=== PATIENT | male | born 1960 | race Caucasian/White ===

== ENCOUNTER → 2020-01-18 | Outpatient (CLI) | payer OTHER ==
[~2020-01-18] MED LIST: ADULT LOW DOSE81 MG PO; DIOVAN320 MG PO; GLUCOSAMINE HC500 MG PO; MULTI-VITAMIN1 EAC5 PO; PRAVASTATIN SOD20 MG PO
== END ==
LOC: CAT 11:34
PROVIDERS: ATTEND Internal Medicine Cardiovascular Disease
DX: Z13.6 Encounter for screening for cardiovascular disorders (principal); I25.10 Atherosclerotic heart disease of native coronary artery without angina pectoris; E78.00 Pure hypercholesterolemia, unspecified

== ENCOUNTER → 2020-06-06 | Outpatient (CLI) | payer BC | LOC: SJCVCIMAG 08:31 | PROVIDERS: ATTEND Internal Medicine Cardiovascular Disease | DX: I49.3 Ventricular premature depolarization (principal); I48.91 Unspecified atrial fibrillation; R53.83 Other fatigue; R93.1 Abnormal findings on diagnostic imaging of heart and coronary circulation; I25.10 Atherosclerotic heart disease of native coronary artery without angina pectoris; R06.00 Dyspnea, unspecified; Z95.2 Presence of prosthetic heart valve ==

== ENCOUNTER → 2021-01-16 | Outpatient (CLI) | payer BC ==
[2021-01-16 10:35] LABS: HEMATOCRIT 44.5 % (42.0-52.0); HEMOGLOBIN 14.3 gm/dL (14.0-18.0); MCH 30.7 pg (26.0-34.0); MCHC 32.2 g/dL (28.0-37.0); MCV 95.4 fL (80.0-100.0); RBC 4.67 mil/uL (4.50-6.00); RDW 13.9 % (10.5-14.5); WBC 5.9 thou/uL (4.0-11.0)
[2021-01-16 10:57] LABS: ALBUMIN 3.9 g/dL (3.4-5.0); CREATININE 1.1 mg/dL (0.7-1.3); POTASSIUM 4.1 mmol/L (3.5-5.1); TOTAL BILIRUBIN 0.6 mg/dL (0.2-1.0); TOTAL PROTEIN 7.3 g/dL (6.4-8.2)
== END ==
LOC: CAT 09:01
PROVIDERS: ATTEND Internal Medicine Cardiovascular Disease
DX: I48.91 Unspecified atrial fibrillation (principal)

== ENCOUNTER 2021-01-21 09:28 | Observation (INO) | payer BC ==
[~2021-01-21] VITALS: Ht 170.2 cm; Wt 86.2 kg
[2021-01-21 10:39] VITALS: BP 138/81
[2021-01-21 10:41] LABS: ABSOLUTE NEUTROPHILS 3.5 thou/uL (1.4-8.2); BASOPHILS 1.1 % (0.0-2.0); EOSINOPHILS 3.1 % (0.0-3.0); HEMATOCRIT 43.5 % (42.0-52.0); HEMOGLOBIN 14.3 gm/dL (14.0-18.0); LYMPHOCYTES 24.8 % (24.0-44.0); MCH 31.3 pg (26.0-34.0); MCHC 32.9 g/dL (28.0-37.0); MONOCYTES 8.3 % (1.0-8.0); PLATELET COUNT 167 thou/uL (150-400); POLYS 62.7 % (36.0-66.0); RBC 4.58 mil/uL (4.50-6.00); RDW 13.9 % (10.5-14.5); WBC 5.6 thou/uL (4.0-11.0)
[2021-01-21 10:44] LABS: CREATININE 1.2 mg/dL (0.7-1.3); POTASSIUM 4.2 mmol/L (3.5-5.1)
[2021-01-21] MEDS ORDERED: FLECAINIDE ACET50 M2 PO (10:46)
[2021-01-21] MEDS ORDERED: TOPROL XL100 MG PO (10:47)
[2021-01-21] MEDS ORDERED: BENICAR40 MG PO (10:47)
[2021-01-21] MEDS ORDERED: ROSUVASTATIN CA20 MG PO (10:48)
[2021-01-21] MEDS ORDERED: XARELTO20 MG PO (10:48)
[2021-01-21 10:50] LABS: ALBUMIN 4.1 g/dL (3.4-5.0); TOTAL BILIRUBIN 0.7 mg/dL (0.2-1.0); TOTAL PROTEIN 7.3 g/dL (6.4-8.2)
[2021-01-21 10:51] LABS: APTT 26.2 Seconds (24.5-32.8); INR 1.02; PROTIME 11.1 Seconds (10.5-12.1)
--- NOTE | 2021-01-21 13:05 | TEE ---
[facility] [place] [address] TRANSESOPHAGEAL ECHOCARDIOGRAM Name: MERA ESPINAL Room #: REG Caitlyn Clemente#: [id number] Admission: 01/21/21 Attend Phys: Phoenix Sánchez MD Discharge: Date of : 58 Report #: [id number] THIS REPORT FOR: cc: Suri Newell MD, Kerry B. MD Santiago, Patrick MD [facility] ~ APPROVED REPORT Study performed: 01/21/2021 11:01:05 EXAM: Comprehensive 2D, Doppler, and color-flow Echocardiogram Patient Location: Out-Patient Room #: 9 Status: routine BSA: 1.98 HR: 59 bpm BP: 135/76 mmHg Rhythm: Bradycardia Other Information Study Quality: Good Indications Atrial Fibrillation Echo Enhancing Agent Indication: Rule out Shunt Agent(s) / Amount(s) Used: Agitated Saline 7 cc Procedure After obtaining informed consent, patient underwent transesophageal echo in the [facility]. Type of Sedation : Conscious Sedation Sedation was administered by Nurse. Sedation start time: 1112 Case end Time: 1120 Sedation was achieved intravenously with: Versed (4.5mg) Fentanyl (75mcg) Transesophageal probe was inserted and advanced into esophagus without difficulty by Austin Persaud MD. Echo enhancement indication: R/O Septal defect. Echo enhancement agent administered: Agitated Saline The AMARA was performed without complications. Throughout the procedure, the blood pressure, pulse oximetry, cardiac [facility] [address] [place] [address] TRANSESOPHAGEAL ECHOCARDIOGRAM Name: MERA ESPINAL Room #: REG CL [facility]#: [id number] Admission: 01/21/21 Attend Phys: Phoenix Sánchez Discharge: Date of : 58 Report #: [id number] rhythm, and rate were monitored. The patient tolerated the procedure without adverse effects. Recovery from conscious sedation was uneventful and vital signs were stable. Left Ventricle The left ventricle is normal size. There is normal LV segmental wall motion. There is normal left ventricular wall thickness. The left ventricular systolic function is normal. The left ventricular ejection fraction is within the normal range. LVEF is 55-60%. Right Ventricle The right ventricle is normal size. The right ventricular systolic function is normal. Atria Left atrium is dilated. No thrombus is visualized in the left atrium or appendage. Injection of contrast documented no interatrial shunt. Right atrium is dilated. Aortic Valve The aortic valve is normal in structure. No aortic regurgitation is present. There is no aortic valvular stenosis. Mitral Valve The mitral valve is normal in structure. 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 Trace mitral regurgitation. No evidence of mitral valve stenosis. Tricuspid Valve The tricuspid valve is normal in structure. Mild tricuspid regurgitation. Pulmonic Valve The pulmonary valve is normal in structure. There is no pulmonic valvular regurgitation. Great Vessels The aortic root is normal in size. Pericardium There is no pericardial effusion. <Conclusion> Consent was obtained AMARA preablation [facility] [address] [place] [address] TRANSESOPHAGEAL ECHOCARDIOGRAM Name: MERA ESPINAL Room #: REG Joseline#: [id number] Admission: 01/21/21 Attend Phys: Phoenix Sánchez Discharge: Date of : 58 Report #: [id number] Timeout performed Esophageal probe was advanced without difficulty Normal left ventricle size/wall thickness Ejection fraction 55% Normal right ventricle size/function Left atrial appendage moderate size no obvious mass or clot detected Normal atrial size Normal aortic/mitral valve structure and function Mild tricuspid valve insufficiency No pericardial effusion Normal aortic root size aorta, no obvious calcification detected Patient tolerated procedure well <ELECTRONICALLY SIGNED> By: Austin Persaud MD, FACC 01/21/21 1305 04 04 Austin Persaud MD, FACC /INF
[2021-01-21 18:20] VITALS: BP 139/83
[2021-01-22 00:53] VITALS: BP 133/74
--- NOTE | 2021-01-22 02:52 | NUR ---
PATIENT WAS ADMITTED TO UNIT JUST PRIOR TO BEGINNING OF HS SHIFT. PATIENT IS AAOX4 AND FOLLOWS ALL COMMANDS AND PROMPTS. HIS IS AT BEDSIDE FOR NOW WITH PATIENT. HIS R GROIN SITE LOOKS GOOD. NO S/S OF SWELLING NOR HEMATOMA FORMATION NOTED. PATIENT HAS BEEN ABLE TO VOID AND DENIES PAIN OR NEEDS. HE IS CALM AND COOPERATIVE. VSS. WILL CONTINUE TO MONITOR FOR CHANGES IN PATIENT STATUS.
[2021-01-22 04:28] VITALS: BP 139/81
[2021-01-22 08:20] VITALS: BP 115/64
[2021-01-22 08:59] VITALS: BP 139/81
--- NOTE | 2021-01-22 10:03 | NUR ---
PATIENT'S RIGHT GROIN INSPECTED AT SHIFT CHANGE AND AT DISCHARGE. NO BLEEDING, EDEMA, PAIN OR BRUISING. PATIENT STATES HE FEELS SIGNIFICANTLY BETTER THAN AT ADMISSION, RELIEVED. PATIENT WALKING INDEPENDENTLY WITHOUT ANY DIFFICULTY. IV AND TELE REMOVED. PATIENT SHOWERED. DISCHARGE PAPERWORK SIGNED. PATIENT TAKEN OUT BY WHEELCHAIR TO BE DRIVEN HOME BY .
--- NOTE | 2021-02-06 13:03 | P ---
[facility] [address] PROCEDURE REPORT Name: MERA ESPINAL Room #: 205-P [facility] Trevizo#: [id number] Admission: 01/21/21 Attend Phys: Phoenix Sánchez MD Discharge: 01/22/21 Date of : 58 Report #: [id number] THIS REPORT FOR: cc: Suri Newell MD, Kerry B. MD Couchonnal, Luis F. MD ~ ATRIAL FIBRILLATION ABLATION PREOPERATIVE DIAGNOSES: Atrial fibrillation and atrial flutter. POSTOPERATIVE DIAGNOSES: Atrial fibrillation and atrial flutter. HISTORY: The patient is a 60-year-old male with history of atrial fibrillation, atrial flutter, here for ablation. PROCEDURES PERFORMED: 1. Atrial fibrillation ablation, CPT code 07780. 2. 3D mapping, CPT code 69983. 3. Intracardiac echo, CPT code 22798. 4. Second pathway ablation -- CPT code 32184. ANESTHESIA: The patient underwent general anesthesia with no anesthesia related complications. DESCRIPTION OF PROCEDURE: The patient underwent informed consent. We discussed the details of the procedure. He understood these risks and is willing to proceed. The patient was brought to the EP laboratory in fasting and sedated state and prepped and draped in a standard fashion. I obtained access to the right femoral vein x 3, placing an 8, 9 and 7-Slovak short sheath using the modified Seldinger technique. Under fluoroscopy, a decapolar catheter was placed in the coronary sinus and ICE catheter was placed in the right atrium. At baseline, the patient was in typical atrial flutter with negative sawtooth flutter waves in the inferior leads with atrial cycle length of 250 milliseconds in proximal distal activation along the CS. This was consistent with cavotricuspid isthmus dependent flutter. The patient was systemically heparinized. Transseptal was performed using an SL1 and [place] needle and this was straightforward. I then started by placing the Lasso catheter in the left atrium and created a 3D geometry of the left atrium. Next, I started by isolating the pulmonary veins. The left superior pulmonary vein underwent two 4-minute freezes and a 3-minute freeze. It was hard to tell if this vein was isolated or not. I then went to the left inferior pulmonary vein and performed two 4-minute freezes, which resulted in isolation. The right superior pulmonary vein underwent a 3-minute freeze isolating at 40 seconds and the right inferior pulmonary vein underwent a 3-minute freeze isolating at 12 seconds. I went back to the left superior pulmonary vein. I could not tell if this was now isolated. [address] [address] PROCEDURE REPORT Name: MERA ESPINAL Room #: [facility] Trevizo#: [id number] Admission: 01/21/21 Attend Phys: Phoenix Sánchez MD Discharge: 01/22/21 Date of : 58 Report #: [id number] Therefore, I decided to perform a DC cardioversion and performed 2 additional 3-minute freezes and this vein appeared to be isolated. As such, all veins were re-interrogated and all veins demonstrated entrance and exit block. Atrial flutter ablation: Next, the patient was prepped for atrial flutter ablation using an 8 mm ablation catheter via a ramp sheath, ablation was performed at 70 chambers, 60 degrees, continuous drag lesion was performed at 6 o'clock along with the cavotricuspid isthmus. Preablation, the transisthmus conduction time was 60 milliseconds and post-ablation, it was 145 milliseconds with activation sequence consistent with bidirectional block. As such, the procedure was concluded. There was no evidence of pericardial effusion and the patient awoke neurologically and hemodynamically intact. No complications and no significant bleeding. CONCLUSION: 1. Successful AFib ablation and isolation of the pulmonary veins. 2. Successful atrial flutter ablation with bidirectional block. <ELECTRONICALLY SIGNED> By: Phoenix Sánchez MD 02/06/21 1303 0747 [id number] Phoenix Sánchez MD /nt
== END 2021-01-22 09:58 | disposition home or self-care (01) ==
LOC: CATH 09:28 → 2N 18:22
PROVIDERS: ADMIT Internal Medicine Cardiovascular Disease; ATTEND Internal Medicine Cardiovascular Disease
DX: I48.91 Unspecified atrial fibrillation (principal); I48.92 Unspecified atrial flutter; Z20.822 Contact with and (suspected) exposure to COVID-19; I10 Essential (primary) hypertension; E78.5 Hyperlipidemia, unspecified; F17.210 Nicotine dependence, cigarettes, uncomplicated; Z79.899 Other long term (current) drug therapy; Z79.82 Long term (current) use of aspirin
CPT/HCPCS: 62110; 62900; 65020; 65040; 70005